=== PATIENT | male | born 1985 | race African-American/Black ===

== ENCOUNTER 2023-12-05 15:19 | Emergency (ER) | payer BC ==
[2023-12-05] MEDS ORDERED: Acetaminophen/Butalbital/Caffeine 325-50-40 MG Tab PO ONE (16:01)
[2023-12-05] MEDS ORDERED: Metoclopramide 10 MG/2 ML SDV IVPUSH ONE (16:01)
[2023-12-05] MEDS ORDERED: diphenhydrAMINE 50 MG/ML SDV IVPUSH ONE (16:01)
[2023-12-05 17:17] LABS: BASOPHILS ABSOLUTE AUTO 0.01 K/uL (0.00-0.20); BASOPHILS PERCENT AUTO 0.2 % (0.0-1.0); EOSINOPHILS ABSOLUTE AUTO 0.01 K/uL (0.00-0.45); EOSINOPHILS PERCENT AUTO 0.2 % (0.0-6.0); IMMATURE GRAN ABSOLUTE AUTO 0.02 K/uL (0.00-0.05); IMMATURE GRAN PERCENT AUTO 0.3 % (0.0-0.4); LYMPHOCYTES PERCENT AUTO 23.3 % (24.0-44.0); MEAN CORPUSCULAR HGB CONC 38.3 g/dL (32.0-36.0); MEAN PLATELET VOLUME 10.5 fL (9.4-12.4); MONOCYTES ABSOLUTE AUTO 0.84 K/uL (0.00-0.80); NEUTROPHILS ABSOLUTE AUTO 4.06 K/uL (1.80-7.70); PLATELET COUNT,PLT 59 K/uL (150-400)
[2023-12-05 17:31] LABS: INR 1.02 (0.86-1.11); PTT,PARTIAL THROMBOPLSTIN TIME 39.4 SEC (23.9-30.7)
[2023-12-05 17:41] LABS: CORONAVIRUS COVID-19 NAA NEGATIVE (NEGATIVE); INFLUENZA A NAA POSITIVE (NEGATIVE); INFLUENZA B NAA NEGATIVE (NEGATIVE)
[2023-12-05] MEDS ORDERED: hydrALAZINE 20 MG/ML SDV IVPUSH ONE (17:51)
[2023-12-05 17:59] LABS: ALBUMIN 3.7 g/dL (3.4-5.0); BILIRUBIN TOTAL 1.7 mg/dL (0.2-1.0); CALCIUM 8.8 mg/dL (8.5-10.1); CARBON DIOXIDE,CO2 28.5 mmol/L (21.0-32.0); CREATININE 2.8 mg/dL (0.8-1.3); EST CRCL DRUG DOSING (CG) 38.47 mL/min; MAGNESIUM 2.1 mg/dL (1.8-2.4); POTASSIUM,K 2.8 mmol/L (3.5-5.1); PROTEIN TOTAL,TP 7.5 g/dL (6.4-8.2)
[2023-12-05] MEDS ORDERED: Aspirin 81 MG Tab.Chew PO ONE (18:01)
[2023-12-05] MEDS: Potassium Chloride 100 ML IV SCH ×3 (18:16→21:20)
[2023-12-05] MEDS ORDERED: Nitroglycerin/D5W 25 MG/250 ML BOTTLE IV SCH (18:30)
[2023-12-05] MEDS ORDERED: Enoxaparin 100 MG/1 ML Syringe SUBCUT STA (18:35)
[2023-12-05 18:36] LABS: HEMATOCRIT 36.5 % (42.0-52.0); MEAN CORPUSCULAR HEMOGLOBIN 32.6 pg (28.0-32.0); MEAN CORPUSCULAR VOLUME 84.9 fL (83.0-99.0); RED BLOOD CELL COUNT 4.07 M/uL (4.52-5.90); WHITE BLOOD CELL COUNT,WBC 6.52 K/uL (3.9-11.3)
[2023-12-05] MEDS ORDERED: Lidocaine 1% 5 ML VIAL ONE (20:22)
== END 2023-12-05 22:51 ==
LOC: MW.ED 15:19
DX: I16.1 Hypertensive emergency (principal); N17.9 Acute kidney failure, unspecified
CPT/HCPCS: 0240U; 36415; 70450; 71045; 80053; 83735; 84484; 85025; 85610; 85730; 93005; 96365; 96366; 96368; 96372; 96375; 99285; A9270; J0360; J1200; J1650; J2305; J2765; J3480; 93010; 99291

== ENCOUNTER 2024-08-08 17:03 | Emergency (ER) | payer BC ==
[2024-08-08] MEDS: Sodium Chloride 0.9% 1,000 ML IV ONE ×3 (17:34→18:53)
[2024-08-08 17:40] LABS: BASOPHILS ABSOLUTE AUTO 0.02 K/uL (0.00-0.20); BASOPHILS PERCENT AUTO 0.3 % (0.0-1.0); EOSINOPHILS ABSOLUTE AUTO 0.08 K/uL (0.00-0.45); EOSINOPHILS PERCENT AUTO 1.2 % (0.0-6.0); HEMATOCRIT 37.1 % (42.0-52.0); HEMOGLOBIN 13.4 g/dL (14.0-18.0); IMMATURE GRAN ABSOLUTE AUTO 0.01 K/uL (0.00-0.05); IMMATURE GRAN PERCENT AUTO 0.2 % (0.0-0.4); LYMPHOCYTES ABSOLUTE AUTO 2.41 K/uL (1.00-4.80); LYMPHOCYTES PERCENT AUTO 37.6 % (24.0-44.0); MEAN CORPUSCULAR HGB CONC 36.1 g/dL (32.0-36.0); MEAN CORPUSCULAR VOLUME 85.9 fL (83.0-99.0); MEAN PLATELET VOLUME 9.6 fL (9.4-12.4); MONOCYTES PERCENT AUTO 10.9 % (0.0-8.0); NEUTROPHILS ABSOLUTE AUTO 3.19 K/uL (1.80-7.70); NEUTROPHILS PERCENT AUTO 49.8 % (41.0-71.0); PLATELET COUNT,PLT 172 K/uL (150-400); RED BLOOD CELL COUNT 4.32 M/uL (4.52-5.90); WHITE BLOOD CELL COUNT,WBC 6.41 K/uL (3.9-11.3)
[2024-08-08 18:08] LABS: A/G RATIO 1.1 (0.9-1.6); ALBUMIN 3.9 g/dL (3.4-5.0); BILIRUBIN TOTAL 0.5 mg/dL (0.2-1.0); CALCIUM 9.3 mg/dL (8.5-10.1); CARBON DIOXIDE,CO2 27.9 mmol/L (21.0-32.0); CREATININE 2.1 mg/dL (0.8-1.3); EST CRCL DRUG DOSING (CG) 52.02 mL/min; POTASSIUM,K 3.7 mmol/L (3.5-5.1); PROTEIN TOTAL,TP 7.5 g/dL (6.4-8.2)
[2024-08-08] MEDS: Sodium Chloride 0.9% 2.5 ML Syringe FLUSH PRN (18:54)
[2024-08-08] MEDS: Sodium Chloride 0.9% 10 ML Syringe FLUSH PRN (18:54)
[2024-08-08 19:42] LABS: APPEARANCE,URINE CLEAR; BILIRUBIN,URINE NEGATIVE (NEGATIVE); COLOR,URINE YELLOW; GLUCOSE,URINE NEGATIVE (NEGATIVE); KETONES,URINE NEGATIVE (NEGATIVE); LEUKOCYTE ESTERASE,URINE NEGATIVE (NEGATIVE); NITRITE,URINE NEGATIVE (NEGATIVE); OCCULT BLOOD,URINE NEGATIVE (NEGATIVE); PROTEIN,URINE NEGATIVE (NEGATIVE); UROBILINOGEN,URINE 0.2 EU/dL (<2.0)
== END 2024-08-08 21:11 | disposition home or self-care (01) ==
LOC: MW.ED 17:03
DX: M62.82 Rhabdomyolysis (principal); I10 Essential (primary) hypertension; Z75.8 Other problems related to medical facilities and other health care; Z79.899 Other long term (current) drug therapy; Z79.82 Long term (current) use of aspirin
CPT/HCPCS: 36415; 71045; 80053; 81003; 82550; 83690; 85025; 93005; 96360; 96361; 99284; J3490; J7030